=== PATIENT | female | born 1960 | race Caucasian/White ===

== ENCOUNTER 2017-01-08 17:29 | Emergency (ER) | payer BC ==
[2017-01-08 17:59] VITALS: BP 147/87
--- NOTE | 2017-01-08 18:39 | UC ---
Respiratory Complaint HPI - HPI Summary HPI Summary: 56 year old female presents with complains of chest cough and nasal congestion. - History of Current Complaint Chief Complaint: UCRespiratory Stated Complaint: COUGH/CHEST CONGESTION Time Seen by Provider: 01/08/17 18:35 - Allergies/Home Medications Allergies/Adverse Reactions: Allergies Allergy/AdvReac Type Severity Reaction Status Date / Time No Known Allergies Allergy Verified 01/08/17 17:59 Home Medications: Home Medications Metoprolol Tartrate TAB* [Lopressor TAB*] 100 mg PO DAILY 01/08/17 [History Confirmed 01/08/17] Sertraline* [Zoloft*] 100 mg PO DAILY 01/08/17 [History Confirmed 01/08/17] PMH/Surg Hx/FS Hx/Imm Hx - Surgical History Surgical History: None - Social History Alcohol Use: Occasionally Substance Use Type: None Smoking Status (MU): Heavy Every Day Tobacco Smoker Type: Cigarettes Amount Used/How Often: 1 pack daily Review of Systems Constitutional: Negative Skin: Negative Eyes: Negative ENT: Nasal Discharge, Sinus Congestion Respiratory: Cough Cardiovascular: Negative Gastrointestinal: Negative Genitourinary: Negative Motor: Negative Neurovascular: Negative Musculoskeletal: Negative Neurological: Negative Psychological: Negative All Other Systems Reviewed And Are Negative: Yes Physical Exam Triage Information Reviewed: Yes Vital Signs: Initial Vital Signs Temp 37.1 C 01/08/17 17:56 Pulse 75 01/08/17 17:56 Resp 16 01/08/17 17:56 BP 147/87 01/08/17 17:56 Pulse Ox 100 01/08/17 17:56 Eye Exam: Normal ENT: Positive: Pharyngeal erythema, Nasal congestion Dental Exam: Normal Neck exam: Normal Neck: Positive: 1 Respiratory Exam: Normal Respiratory: Positive: Rhonchi - right base, Wheezing Cardiovascular Exam: Normal Abdominal Exam: Normal Musculoskeletal Exam: Normal Neurological Exam: Normal Psychological Exam: Normal Skin Exam: Normal UC Diagnostic Evaluation - Laboratory O2 Sat by Pulse Oximetry: 100 Respiratory Course/Dx - Differential Dx/Diagnosis Provider Diagnoses: cough. sinusitis Discharge - Discharge Plan Condition: Stable Disposition: HOME Prescriptions: Azithromycin TAB* [Zithromax TAB (Z-SRINIVASA) 250 mg #6 tabs] 2 tab PO .TODAY, THEN 1 DAILY #1 srinivasa guaiFENesin/CODIEN 100MG-10MG* [Robitussin AC 100Mg-10Mg*] 5 ml PO Q4H PRN #120 udc MDD 20 ml PRN Reason: Cough Patient Education Materials: Sinusitis (ED), Acute Cough (ED) Referrals: Ghazala Jesus NP [Primary Care Provider] - If Needed
== END 2017-01-08 18:45 | disposition home or self-care (01) ==
LOC: UCCORT 17:29
DX: R05 Cough (principal); J32.9 Chronic sinusitis, unspecified; F17.210 Nicotine dependence, cigarettes, uncomplicated
CPT/HCPCS: 99212; G0463

== ENCOUNTER 2018-03-28 16:36 | Emergency (ER) | payer BC ==
[2018-03-28 17:04] VITALS: BP 124/75
--- NOTE | 2018-03-28 17:06 | UC ---
Back Pain HPI - HPI Summary HPI Summary: 57 yo female presents with mid back pain that started yesterday. She tells me that on 03/11 she saw her PCP due to right rib pain that started suddenly. An XR was performed and was negative per pt. She was given NSAIDs and dx'd with pleurodynia. Her rib pain resolved. Since that time she has been having a dry cough. Yesterday developed mid back pain that is painful when she takes a deep breath or stands up straight. Feels better when she is hunched over. She has been taking naproxen for pain with mild relief. Denies fever, chills, SOB, chest pain, abdominal pain, n/v - History of Current Complaint Chief Complaint: UCBackPain Stated Complaint: SEVERE BACK PAIN Hx Obtained From: Patient Onset/Duration: Sudden Onset Severity Initially: Severe Severity Currently: Severe Pain Intensity: 9 Pain Scale Used: 0-10 Numeric - Allergies/Home Medications Allergies/Adverse Reactions: Allergies Allergy/AdvReac Type Severity Reaction Status Date / Time No Known Allergies Allergy Verified 01/08/17 17:59 Home Medications: Home Medications Hydroxychloroquine TAB* [Plaquenil TAB*] 200 mg PO BID 03/28/18 [History Confirmed 03/28/18] Naproxen [Naproxen 500 mg tab] 500 mg PO BID 03/28/18 [History Confirmed ] Omeprazole CAP* [Prilosec CAP* 20 MG] 40 mg PO DAILY 03/28/18 [History Confirmed 03/28/18] PMH/Surg Hx/FS Hx/Imm Hx Cardiovascular History: Hypertension GI/ History: Gastroesophageal Reflux Psychological History: Anxiety, Depression - Surgical History Surgical History: None - Family History Known Family History: Positive: None - Social History Occupation: Employed Full-time Lives: With Family Alcohol Use: Occasionally Substance Use Type: None Smoking Status (MU): Heavy Every Day Tobacco Smoker Type: Cigarettes Amount Used/How Often: 1/2-3/4 ppd Review of Systems Constitutional: Negative Skin: Negative Eyes: Negative ENT: Negative Respiratory: Cough Cardiovascular: Negative Gastrointestinal: Negative Neurovascular: Negative Musculoskeletal: Other: - Mid back pain Neurological: Negative Psychological: Negative All Other Systems Reviewed And Are Negative: Yes Physical Exam - Summary Physical Exam Summary: GENERAL: NAD. WDWN. No pain distress. SKIN: No rashes, sores, lesions, or open wounds. HEENT: Head: AT/NC Eyes: Conjunctiva clear without inflammation or discharge. Ears: Hearing grossly normal. TMs intact, no bulging, erythema, or edema. Nose: Nasal mucosa pink and moist. NTTP maxillary and frontal sinus. Throat: Posterior oropharynx without exudates, erythema, or tonsillar enlargement. Uvula midline. NECK: Supple. Nontender. No lymphadenopathy. CHEST: Mild wheezing throughout. No r/r. No accessory muscle use. Breathing comfortably and in no distress. CV: RRR. Without m/r/g. Pulses intact. Cap refill <2seconds MSK: Moderate TTP ~T4-T6 vertebrae with surrounding mild TTP. Standing straight increased her pain. She is able to bend/flex with little pain. NEURO: Alert. PSYCH: Age appropriate behavior. Triage Information Reviewed: Yes Vital Signs: Initial Vital Signs Temp 97.9 F 03/28/18 16:56 Pulse 91 03/28/18 16:56 Resp 18 03/28/18 16:56 BP 124/75 03/28/18 16:56 Pulse Ox 100 03/28/18 16:56 Vital Signs Reviewed: Yes Back Pain Course/Dx - Course Course Of Treatment: CXR: IMPRESSION: #. Stigmata of obstructive lung disease. No acute pulmonary or cardiac process evident. #. New compared with January 05, 2015 lateral chest radiograph mild anterior column T6. compression fracture without definitive acute features. She had improvement of her cough/breathing s /p levalbuterol treatment. Lungs with less wheezing. Given her sudden pain in the area of T6, suspect this fracture may be acute. She says that she has not fallen or had an injury to the area, but was dx'd with osteopenia a few years ago via DEXA scan. Will rx for Tramadol for pain control and have her f/u with her PCP for recheck next week. iSTOP: Reference #: [id number] - Differential Dx/Diagnosis Provider Diagnoses: T6 compression fracture. COPD exacerbation Discharge - Sign-Out/Discharge Documenting (check all that apply): Patient Departure All imaging exams completed and their final reports reviewed: Yes - Discharge Plan Condition: Stable Disposition: HOME Prescriptions: traMADol TAB* [Ultram*] 50 mg PO Q12H PRN #8 tab MDD 2 PRN Reason: Pain Patient Education Materials: Vertebral Compression Fracture (ED) Referrals: Dill,Florecita L, MD [Primary Care Provider] - Additional Instructions: If you develop a fever, shortness of breath, chest pain, new or worsening symptoms - please call your PCP or go to the ED. 1) Please schedule a follow up appointment with your Primary Doctor as soon as possible for a recheck - Billing Disposition and Condition Condition: STABLE Disposition: Home
[2018-03-28] MEDS ORDERED: Levalbuterol 0.63MG/3ML NEB* UNIT OF USE INH ONE (17:14)
--- NOTE | 2018-03-28 17:57 | RAD ---
INDICATION: Mid back pain starting yesterday. Coughing. COPD. History of tobacco use. COMPARISON: March 11, 2018. PA and lateral chest radiograph of January 05, 2015. TECHNIQUE: Dual energy PA and routine lateral views of the chest were obtained. REPORT: Elevated lung volumes and mild prominence of interstitial markings. No focal pulmonary lesion, compelling alveolar consolidation, pleural effusion, pneumothorax. The heart, pulmonary vasculature, and mediastinal contours are unremarkable. Mild anterior compression deformity of the approximate T6 vertebral body is new compared with the January 05, 2015 chest radiograph. No discrete cortical disruption or trabecular impaction evident to confirm that this represents an acute or subacute fracture. IMPRESSION: #. Stigmata of obstructive lung disease. No acute pulmonary or cardiac process evident. #. New compared with January 05, 2015 lateral chest radiograph mild anterior column T6 compression fracture without definitive acute features.
== END 2018-03-28 18:30 | disposition home or self-care (01) ==
LOC: UCCORT 16:36
DX: M48.56XA Collapsed vertebra, not elsewhere classified, lumbar region, initial encounter for fracture (principal); J44.1 Chronic obstructive pulmonary disease with (acute) exacerbation; I10 Essential (primary) hypertension; K21.9 Gastro-esophageal reflux disease without esophagitis; F17.210 Nicotine dependence, cigarettes, uncomplicated
CPT/HCPCS: 71046; 81003; 87077; 87086; 99212; G0463

== ENCOUNTER 2018-06-20 10:18 | Emergency (ER) | payer BC ==
--- OUTSIDE RECORDS SUMMARY | 2018-06-20 10:27 | XMS REPORT | Continuity of Care Document ---
:1960 External Reference #:[id number] Author Name Paty Armstrong Care Team Providers Name Role Phone Florecita Porter M.D. Primary Care Physician Unavailable Payers Type Date Identification Numbers Payment Provider Subscriber Policy Number: [id number] [employer]low PayID: [id number] [address] [address] [place] [address] Advance Directives Description No Information Available Problems Description No Information Family History Date Family Member(s) Problem(s) Comments Father due to Prostate Cancer () - at age 78 Mother due to Lung Cancer () - at age 75 Siblings 4 sister-spondolithesis brother-onset adult cystic fibrosis sister-hypertension Social History Type Date Description Comments Sex Unknown Marital Status Lives With Spouse Occupation [employer] ETOH Use Denies alcohol use Tobacco Use Start: Unknown Heavy tobacco smoker (more since age 16 than 10 cigarettes/day) Recreational Drug Use Denies Drug Use Smoking Status Reviewed: 06/16/18 Heavy tobacco smoker (more since age 16 than 10 cigarettes/day) Exercise Type/Frequency Exercises rarely Allergies, Adverse Reactions, Alerts Description No Known Drug Allergies Medications Medication Date Status Form Strength Qnty SIG Indications Ordering Provider Plaquenil Active Tablets 200mg 2 by mouth Unknown 000 daily ongoing Vitamin D3 Active Tablets [id number] one by Unknown Ultra Potency 000 mouth once weekly Amlodipine Active Tablets 10mg 1 by mouth Unknown Besylate 000 every day Metoprolol Active Tablets 100mg take 1 1/2 Unknown Tartrate 000 tablets once daily Omeprazole Active Capsules 40mg 1 by mouth Unknown 000 DR every day Sertraline Active Tablets 100mg 1 by mouth Unknown HCL 000 every day Calcitonin Active Solution 200Unit/Ac one spray Unknown ([place]) 000 t daily in alternate nostrils Naproxen Active Tablets 550mg 1 by mouth Unknown Sodium 000 twice a day after meals Tramadol HCL Active Tablets 50mg 1-2 tablets Unknown 000 by mouth every 6 hours as needed pain Fosamax Hx Tablets 70mg take one Unknown 000 - tablet by mouth every 018 week Gabapentin Hx Capsules 100mg 1 capsule Unknown 000 - three times daily. 018 Immunizations Description No Information Available Vital Signs Date Vital Result Comment 06/16/2018 9:52am Height 61 inches 5'1" Heart Rate 74 /min BP Systolic Sitting 120 mmHg BP Diastolic Sitting 98 mmHg Pain Level 5 05/07/2018 8:08am Height 61 inches 5'1" Weight 164.25 lb Heart Rate 80 /min BP Systolic Sitting 130 mmHg BP Diastolic Sitting 96 mmHg Respiratory Rate 20 /min BMI (Body Mass Index) 31.0 kg/m2 Results Description No Information Available Procedures Description No Information Available Encounters Type Date Location Provider Dx Diagnosis Office Visit 05/07/2018 [facility] O[facility] osteopor w 8:00a [facility] S[facility] verte[facility], [facility] Plan of Treatment Future Appointment(s):09/17/2018 8:30 am - Bailee Sanders MD [facility]06/16/2018 - Bailee Sanders [id number] Oth osteopor w ines [facility]um, 7thD
[2018-06-20 10:39] VITALS: BP 134/75
--- NOTE | 2018-06-20 11:50 | UC ---
Back Pain HPI - HPI Summary HPI Summary: mid back pain x 2 days hx of chronic back pain , s/p compression fracture T6 on chronic pain meds Ultram pain has been sever for the past 2 days after coughing no radiation of the pain - History of Current Complaint Chief Complaint: UCBackPain Stated Complaint: BACK PAIN Time Seen by Provider: 06/20/18 11:03 Hx Obtained From: Patient Onset/Duration: Sudden Onset, Lasting Days - 2, Still Present Timing: Constant Severity Initially: Severe Severity Currently: Severe Pain Intensity: 8 Back Pain: Is Discrete @ - mid back pain Character: Aching Aggravating Factor(s): Movement, Lifting, Bending, Walking, Cough Alleviating Factor(s): Nothing Associated Signs And Symptoms: Negative: Swelling, Redness, Bruising, Fever, Weakness, Numbness, Tingling, Bladder Incontinence - Allergies/Home Medications Allergies/Adverse Reactions: Allergies Allergy/AdvReac Type Severity Reaction Status Date / Time No Known Allergies Allergy Verified 06/20/18 10:32 Home Medications: Home Medications Amlodipine Besylate [Amlodipine 2.5 mg tab] 2.5 mg PO DAILY 06/20/18 [History Confirmed 06/20/18] Calcium Carbonate/Vitamin D3 [Calcium 500 + Vit D Caplet] 1 each PO DAILY [History Confirmed 06/20/18] Cholecalciferol TAB* [Vitamin D TAB*] 1,000 unit PO DAILY 06/20/18 [History Confirmed 06/20/18] Multivitamin [Multivitamins] 1 cap PO DAILY 06/20/18 [History Confirmed 06/20/18 ] PMH/Surg Hx/FS Hx/Imm Hx - Additional Past Medical History Additional PMH: chronic back pain Cardiovascular History: Hypertension Respiratory History: COPD - Surgical History Surgical History: Yes Surgery Procedure, Year, and Place: TUBAL LIGATION - Family History Known Family History: Positive: None - Social History Alcohol Use: Occasionally Substance Use Type: None Smoking Status (MU): Heavy Every Day Tobacco Smoker Type: Cigarettes Amount Used/How Often: 1/2-3/4 ppd Review of Systems All Other Systems Reviewed And Are Negative: Yes Constitutional: Positive: Negative Skin: Positive: Negative Eyes: Positive: Negative ENT: Positive: Negative Is Patient Immunocompromised?: No Physical Exam Triage Information Reviewed: Yes Appearance: Well-Appearing, Pain Distress Vital Signs: Initial Vital Signs Temp 98.6 F 12/21/18 10:35 Pulse 84 06/20/18 10:35 Resp 16 06/20/18 10:35 BP 134/75 06/20/18 10:35 Pulse Ox 99 06/20/18 10:35 Vital Signs Reviewed: Yes Eye Exam: Normal Eyes: Positive: Conjunctiva Clear ENT: Positive: Normal ENT inspection, Hearing grossly normal, Pharynx normal Neck: Positive: Supple, Nontender, No Lymphadenopathy Respiratory: Positive: Chest non-tender, Lungs clear, Normal breath sounds Cardiovascular: Positive: RRR, No Murmur, Pulses Normal Musculoskeletal: Positive: Other: - mid back : no swelling, + tenderness t4 to t8 limited ROM on flexion , Diagnostics - Laboratory Diagnostic Studies Completed/Ordered: xray Tspine : IMPRESSION: 1. SCOLIOSIS. 2. STABLE COMPRESSION DEFORMITY OF T6. Back Pain Course/Dx - Differential Dx/Diagnosis Provider Diagnosis: Mid back pain Discharge - Sign-Out/Discharge Documenting (check all that apply): Patient Departure All imaging exams completed and their final reports reviewed: Yes - Discharge Plan Condition: Stable Disposition: HOME Prescriptions: Cyclobenzaprine TAB* [Flexeril 10 MG TAB*] 10 mg PO BID PRN #20 tab PRN Reason: Pain Patient Education Materials: Chronic Back Pain (DC) Referrals: Florecita Porter MD [Primary Care Provider] - 5 Days Additional Instructions: cont. with rest, ice, Ultram as needed for pain. use Flexeril 2 x per day as needed follow up with your pcp in 5 days - Billing Disposition and Condition Condition: STABLE Disposition: Home
== END 2018-06-20 11:47 | disposition home or self-care (01) ==
LOC: UCCORT 10:18
DX: M54.6 Pain in thoracic spine (principal); I10 Essential (primary) hypertension
CPT/HCPCS: 72070; 99212; G0463

== ENCOUNTER 2018-09-10 13:49 | Emergency (ER) | payer BC ==
[2018-09-10 14:09] VITALS: BP 157/96
[2018-09-10] MEDS ORDERED: Albuterol/Ipratropium NEB.SOL* Albuterol 2.5 MG/Ipratropium 0.5 MG 3 ML INH ONE (14:27)
--- NOTE | 2018-09-10 14:32 | UC ---
Respiratory Complaint HPI - HPI Summary HPI Summary: Patient has had cold symptoms over the past 2 weeks with her cough worsening over the past couple of days. She does use an albuterol inhaler at home which has not helped. She's had productive cough of green sputum with wheezing. She continues to smoke. She did not get a flu shot in fall. He is not registered a fever however she feels like she's had a fever. - History of Current Complaint Chief Complaint: UCRespiratory Stated Complaint: WHEEZING,CONGESTION,SOB Time Seen by Provider: 09/10/18 14:22 Hx Obtained From: Patient ?: No Onset/Duration: Gradual Onset Severity Initially: Moderate Severity Currently: Moderate Pain Intensity: 0 Character: Cough: Productive - Rectal cough of green sputum Aggravating Factors: Nothing Alleviating Factors: Bronchodilator - States her albuterol inhaler hasn't helped much at home. Associated Signs And Symptoms: Positive: Fever, URI, Nasal Congestion - Allergies/Home Medications Allergies/Adverse Reactions: Allergies Allergy/AdvReac Type Severity Reaction Status Date / Time No Known Allergies Allergy Verified 09/10/18 14:07 PMH/Surg Hx/FS Hx/Imm Hx Previously Healthy: Yes Respiratory History: COPD, Asthma - Surgical History Surgical History: Yes Surgery Procedure, Year, and Place: TUBAL LIGATION - Family History Known Family History: Positive: None - Social History Alcohol Use: Occasionally Substance Use Type: None Smoking Status (MU): Heavy Every Day Tobacco Smoker Type: Cigarettes Amount Used/How Often: 1/2-3/4 ppd Review of Systems All Other Systems Reviewed And Are Negative: Yes Constitutional: Positive: Fever, Chills - Patient has not registered a fever on a thermometer but she feels feverish. Skin: Positive: Negative Eyes: Positive: Negative ENT: Positive: Nasal Discharge, Sinus Congestion - Symptoms started as an upper respiratory illness however she states that has moved to her chest. Respiratory: Positive: Cough - Productive cough of green sputum occasionally short of breath especially when she's been coughing. Patient has been using an albuterol inhaler without improvement. Cardiovascular: Positive: Negative Gastrointestinal: Positive: Negative Genitourinary: Positive: Negative Motor: Positive: Negative Neurovascular: Positive: Negative Musculoskeletal: Positive: Negative Neurological: Positive: Negative Psychological: Positive: Negative Is Patient Immunocompromised?: No Physical Exam Triage Information Reviewed: Yes Appearance: Well-Appearing, No Pain Distress, Well-Nourished Vital Signs: Initial Vital Signs Temp 97.9 F 09/10/18 14:06 Pulse 105 09/10/18 14:06 Resp 21 09/10/18 14:06 BP 157/96 09/10/18 14:06 Pulse Ox 98 09/10/18 14:06 Vital Signs Reviewed: Yes Eye Exam: Normal ENT Exam: Normal Neck exam: Normal Respiratory: Positive: No respiratory distress, No accessory muscle use, Rhonchi , Wheezing - Scattered rhonchi and wheezing throughout all lung hannon. Air movement. No respiratory distress. Cardiovascular Exam: Normal Abdominal Exam: Normal Bowel Sounds: Positive: Present Musculoskeletal Exam: Normal Neurological Exam: Normal Psychological Exam: Normal Skin Exam: Normal Re-Evaluation - Re-Evaluation First Eval Change: Improved - The patient noted mild improvement following the DuoNeb treatment however she continues to still have scattered wheezing and rhonchi throughout however no distress. Respiratory Course/Dx - Course Course Of Treatment: She has been comfortable here. X-ray report showsREPORT: Mild alveolar consolidation at the RIGHT lung base. Elevated lung volumes. Patchy. upper lung zone rarefaction of interstitial markings. Negative for pleural effusion or. pneumothorax. The heart, pulmonary vasculature, and mediastinal contours are unremarkable. IMPRESSION: #. Probable mild RIGHT basilar inflammatory infiltrates superimposed on chronic. obstructive pulmonary disease. - Differential Dx/Diagnosis Differential Diagnosis/HQI/PQRI: Other - Community-acquired pneumonia Provider Diagnosis: Community acquired pneumonia Discharge - Sign-Out/Discharge Documenting (check all that apply): Patient Departure All imaging exams completed and their final reports reviewed: No Studies - Discharge Plan Condition: Fair Disposition: HOME Prescriptions: Albuterol HFA INHALER* [Ventolin HFA Inhaler*] 2 puff INH Q4H PRN 5 Days #1 mdi PRN Reason: Wheezing DOXYcycline CAP(*) [DOXYcycline 100MG CAP(*)] 100 mg PO BID 10 Days #20 cap Patient Education Materials: Community Acquired Pneumonia (DC) Forms: *Work Release Referrals: Florecita Porter MD [Primary Care Provider] - Additional Instructions: Increase fluids, do not take any multivitamins, your calcium tablet, or any dairy products or antacids 2 hours prior to taking the doxycycline and 2 hours after he takes the doxycycline. However it is important that you take doxycycline with food. Continue your albuterol inhaler 2 puffs every 4-6 hours as needed for wheezing. Definite follow-up with your primary care provider before the antibiotic is finished. If you develop any worsening symptoms, shortness of breath, difficulty breathing, chest pain your to go to the emergency room. - Billing Disposition and Condition Condition: FAIR Disposition: Home
== END 2018-09-10 15:03 | disposition home or self-care (01) ==
LOC: UCCORT 13:49
DX: J18.9 Pneumonia, unspecified organism (principal); J44.0 Chronic obstructive pulmonary disease with (acute) lower respiratory infection; F17.210 Nicotine dependence, cigarettes, uncomplicated
CPT/HCPCS: 71046; 99212; A9270-GY; G0463

== ENCOUNTER 2019-02-10 17:17 | Emergency (ER) | payer BC ==
[2019-02-10 17:47] VITALS: BP 136/88
--- NOTE | 2019-02-10 17:58 | UC ---
UC General HPI - HPI Summary HPI Summary: per triage, Intermittent left lora pain aggrevated by touching it and weight bearing. Pain is at it's worst when walking on it. It hurts at rest first thing in the mornings and late at night. Pain started after more than normal walking while on vacation two weeks ago. Patient has not tried anything to relieve pain. Patient is concerned about a fracture due to osteoporosis and history of atraumatic thoracic fracture. Patient's stated silvianotnet is currently having alupus flare. [ End ] PT DENIES CP, SOB AND COUGH. NO PRIOR HX DVT. HX LUPUS. - History of Current Complaint Chief Complaint: UCLowerExtremity Stated Complaint: LEFT LORA INJURY Time Seen by Provider: 02/10/19 17:36 Hx Obtained From: Patient Pain Intensity: 4 - Allergy/Home Medications Allergies/Adverse Reactions: Allergies Allergy/AdvReac Type Severity Reaction Status Date / Time No Known Allergies Allergy Verified 09/10/18 14:07 Home Medications: Home Medications Belimumab [Benlysta] 200 mg SUBCUT Q14D 02/10/19 [History Confirmed 02/10/19] PMH/Surg Hx/FS Hx/Imm Hx - Additional Past Medical History Additional PMH: Lupus Cardiovascular History: Hypertension GI/ History: Gastroesophageal Reflux Psychological History: Depression - Surgical History Surgical History: Yes Surgery Procedure, Year, and Place: Exploratory Laporoscopy;Tubal Ligation, 1991 , - Family History Known Family History: Positive: None - Social History Alcohol Use: None Substance Use Type: None Smoking Status (MU): Heavy Every Day Tobacco Smoker Type: Cigarettes Amount Used/How Often: ~1 PPD Length of Time of Smoking/Using Tobacco: Since Age 16 Review of Systems All Other Systems Reviewed And Are Negative: No Constitutional: Negative: Fever, Chills Skin: Negative: Rash Respiratory: Negative: Shortness Of Breath, Cough Cardiovascular: Negative: Palpitations, Chest Pain Musculoskeletal: Negative: Decreased ROM Neurological: Negative: Weakness, Paresthesia, Numbness Physical Exam Triage Information Reviewed: Yes Appearance: Well-Appearing Vital Signs: Initial Vital Signs Temp 98 F 02/10/19 17:36 Pulse 78 02/10/19 17:36 Resp 16 02/10/19 17:36 BP 136/88 02/10/19 17:36 Pulse Ox 99 02/10/19 17:36 Vital Signs Reviewed: Yes Respiratory: Positive: No respiratory distress Cardiovascular: Positive: RRR Musculoskeletal: Positive: Other: - LLE: MILD SWELLING FROM KNEE DOWN. SLIGHT MEDIAL CALF TENDERNESS BUT NO CORDS. ALSO TENDER OVER PROXIMAL-MEDIAL TIBIA. HIP. KNEE AND ANKLE/FOOT ARE NON TENDER. FOOT HAS GROSS S/V/M FUNCTION. Course/Dx - Course Course Of Treatment: [facility] CALLED-SADE CURIEL NP ADVISED OF PT WITH LUPUS AND HX LLE PAIN/SWELLING X 2 WEEKS. - Differential Dx - Multi-Symptom Differential Diagnoses: Other - NO CONCERN FOR INFECTION. POSSIBLE STRESS FX/ LORA SPLINT; HOWEVER, THE DIFFUSE SWELLING FROM JUST ABOVE THE KNEE DOWN THUS WILL NEED TO R/O DVT. PT AGREES TO ER TRANSFER. XRAY WILL BE DEFER TO THE ER. - Diagnoses Provider Diagnosis: Swelling of left lower extremity, Pain in left lower leg Discharge - Sign-Out/Discharge Documenting (check all that apply): Patient Departure All imaging exams completed and their final reports reviewed: No Studies - Discharge Plan Condition: Stable Disposition: TRANS HIGHER LVL OF CARE FAC Referrals: Florecita Porter MD [Primary Care Provider] - Additional Instructions: LEAVE HERE AND GO DIRECTLY TO THE [facility] DISCUSSED. - Billing Disposition and Condition Condition: STABLE Disposition: Trans Higher Lvl of Care Fac
== END 2019-02-10 18:15 | disposition short-term general hospital (02) ==
LOC: UCCORT 17:17
DX: M79.89 Other specified soft tissue disorders (principal); M79.662 Pain in left lower leg; I10 Essential (primary) hypertension; M32.9 Systemic lupus erythematosus, unspecified; F17.210 Nicotine dependence, cigarettes, uncomplicated
CPT/HCPCS: 99212; G0463

== ENCOUNTER 2019-04-22 17:16 | Emergency (ER) | payer BC ==
--- OUTSIDE RECORDS SUMMARY | 2019-04-22 17:24 | XMS REPORT | Continuity of Care Document ---
:1960 External Reference #:[id number] Author Name Emiliano Pittman MD (transmitted by agent of provider Nicolas Valdez) Address [address] [place] [id number] Care Team Providers Name Role Phone Florecita Porter M.D. - Internal Medicine Care Team Information Entry Level Financial Analyst Problems Description No Information Available Social History Type Date Description Comments Sex Unknown ETOH Use Denies alcohol use Recreational Drug Use Denies Drug Use Tobacco Use Start: Unknown Light tobacco smoker (10 or fewer cigarettes/day) Smoking Status Reviewed: 04/03/19 Light tobacco smoker (10 or fewer cigarettes/day) Exercise Type/Frequency Exercises rarely Allergies, Adverse Reactions, Alerts Description No Known Drug Allergies Medications Active Medications SIG Qnty Indications Ordering Provider Date Knee Walker For Left 1units Emiliano Pittman, 03/10/2019 Tibia Fracture MD Lorenz For Left M84.362S Emiliano Pittman, 03/04/2019 Tibia Fracture Plaquenil 2 by mouth daily Unknown 200mg ongoing Tablets Vitamin D2 1 tab by mouth 12tabs Unknown 2000Unit twice daily Tablets Amlodipine Besylate 1 by mouth every Unknown day 10mg Tablets Metoprolol Tartrate take 1 1/2 tablets Unknown once daily 100mg Tablets Omeprazole 1 by mouth every Unknown 40mg day Capsules DR Sertraline HCL 1 by mouth every Unknown 100mg day Tablets Calcitonin ([place]) one spray daily in Unknown alternate nostrils 200Unit/Act Solution Naproxen Sodium 1 by mouth twice a Unknown 550mg day after meals Tablets Benlysta 1 injection weekly Keanu Ortiz, 200mg/ml as directed MD Duong Prefill Syringe Immunizations Description No Information Available Vital Signs Date Vital Result Comment 04/03/2019 9:16am Height 61 inches 5'1" Weight 164.00 lb Heart Rate 88 /min BP Systolic Sitting 126 mmHg BP Diastolic Sitting 74 mmHg Respiratory Rate 16 /min Pain Level 7 O2 % BldC Oximetry 97 % BMI (Body Mass Index) 31.0 kg/m2 03/04/2019 9:19am Height 61 inches 5'1" Heart Rate 84 /min BP Systolic Sitting 110 mmHg BP Diastolic Sitting 82 mmHg Respiratory Rate 24 /min no resp diffiulties Pain Level 9 O2 % BldC Oximetry 98 % Results Description No Information Available Procedures Description No Information Available Medical Devices Description No Information Available Encounters Type Date Location Provider Dx Diagnosis Office Visit 03/04/2019 [facility] Emiliano Pittman M84.362S Stress fracture, 9:00a at [place] left tibia, sequela M80.00xD Age-rel osteopor w crnt path fx, unsp site, 7thD Office Visit 02/16/2019 10:45a [facility] Emiliano Pittman M79.662 Pain in left at [place] lower leg Assessments Date Code Description Provider 04/03/2019 M84.362S Stress fracture, left tibia, linnea Pittman MD 03/04/2019 M84.362S Stress fracture, left tibia, linnea Pittman MD 03/04/2019 M80.00xD Age-related osteoporosis with current Emiliano Pittman MD pathological fracture, unspecified site, subsequent encounter for fracture with routine healing 02/16/2019 M79.662 Pain in left lower leg Emiliano Pittman MD Plan of Treatment 04/03/2019 - Emiliano Pittman, MDM84.362S Stress fracture, left tibia, sequelaFollow up:Follow up: I called Dr. Porter office and she has upcoming appt Functional Status Description No Information Available Mental Status Description No Information Available Referrals Description No Information Available
--- NOTE | 2019-04-22 18:00 | UC ---
Back Pain HPI - HPI Summary HPI Summary: 58 y/o female presents to the urgent care c/o RT upper back pain and under Rt scapula which returned for the past 2 weeks ago. no injury but patient has cough for 2 weeks. She also has Hx of osteoporosis in back and COPD. She reports a thoracic vertebral compression fracture in [address] Sharma has manage her symptoms. However she wants another opinion. Also reports Hx of tibia fracture recently due to her osteoporosis. She takes Benlysta PO yearly for her Osteoporosis. However she thinks it has worsen since lately she has has this fractures. Pt also c/o hesitancy, and frequency on urination. Pt denies lower back pain, flank pain, numbness or tingling sensation over the 4 extremities, SOB, chest pain, dizziness, abdominal pain, N/ V/D, KISER, vaginal discharge or Hx of STD's. Pt has been taken Aleve PO to alleviate symptoms, but nothing today. - History of Current Complaint Chief Complaint: UCBackPain Stated Complaint: BACK PAIN Time Seen by Provider: 04/22/19 17:59 Hx Obtained From: Patient ?: No Onset/Duration: Gradual Onset, Lasting Weeks - 2 weeks, Still Present, Worse Since - 2 days Timing: Constant Severity Initially: Moderate Severity Currently: Moderate Pain Intensity: 6 Pain Scale Used: 0-10 Numeric Back Pain: Is Discrete @ - mid upper back and Rt side scapula Character: Sharp Aggravating Factor(s): Movement, Lifting Alleviating Factor(s): Rest, OTC Meds Associated Signs And Symptoms: Positive: Negative. Negative: Swelling, Redness , Weakness, Numbness, Tingling, Abdominal Pain, Flank Pain, Bladder Incontinence , Bowel Incontinence, Weight Loss, Pain with Weight Bearing Related History: Similar Episode Dx As - Compression fracture at T6 and osteoporosis - Risk Factors AAA Risk Factors: Negative TAD Risk Factors: Negative Cauda Equina Risk Factors: Negative Epidural Abscess Risk Factors: Negative - Allergies/Home Medications Allergies/Adverse Reactions: Allergies Allergy/AdvReac Type Severity Reaction Status Date / Time No Known Allergies Allergy Verified 04/22/19 17:58 Home Medications: Home Medications Cyanocobalamin (Vitamin B-12) [Vitamin B-12] 1,000 mcg PO SEE INSTRUCTIONS 04/22 [History Confirmed 04/22/19] Magnesium Oxide [Magnesium] 1 tab PO DAILY 04/22/19 [History Confirmed 04/22/19] PMH/Surg Hx/FS Hx/Imm Hx Previously Healthy: Yes Other Endocrine History: Osteoporosis, Cardiovascular History: Hypertension GI/ History: Gastroesophageal Reflux Other Neurological History: compression fracture at T6 - Surgical History Surgical History: Yes Surgery Procedure, Year, and Place: Exploratory Laporoscopy;. Tubal Ligation, 1991, [place] - Family History Known Family History: Positive: Cardiac Disease, Hypertension - Social History Occupation: Employed Full-time Lives: With Family Alcohol Use: Rare Substance Use Type: None Smoking Status (MU): Heavy Every Day Tobacco Smoker Type: Cigarettes Amount Used/How Often: 1/2 PPD Length of Time of Smoking/Using Tobacco: Since Age 16 Review of Systems All Other Systems Reviewed And Are Negative: Yes Constitutional: Positive: Negative Skin: Positive: Negative Eyes: Positive: Negative ENT: Positive: Negative Respiratory: Positive: Negative Cardiovascular: Positive: Negative Gastrointestinal: Positive: Negative Genitourinary: Positive: Frequency, Urgency Motor: Positive: Negative Neurovascular: Positive: Negative Musculoskeletal: Positive: Decreased ROM - upper back, Other: - RT side mid upper back pain and RT scapula pain Neurological: Positive: Negative Psychological: Positive: Negative Is Patient Immunocompromised?: No Physical Exam - Summary Physical Exam Summary: Vital Signs Reviewed: Yes Appearance: Well-Appearing, Well-Nourished, female sitting in the examining table w/o any apparent distress. Eyes: Positive: Conjunctiva Clear - PERRLA, EOMI. ENT: Positive: Normal ENT inspection, Hearing grossly normal, Pharynx normal, TMs normal, Uvula midline Neck: Positive: Supple, Nontender, No Lymphadenopathy Respiratory: Positive: Chest non-tender, Lungs clear, Normal breath sounds, No respiratory distress Cardiovascular: Positive: RRR, No Murmur, Pulses Normal, Brisk Capillary Refill Abdomen Description: Positive: Nontender, No Organomegaly, Soft. Negative: CVA Tenderness (R), CVA Tenderness (L) Bowel Sounds: Positive: Present Musculoskeletal: Positive: Strength Intact, BACK: Patient walked into the urgent care room with symmetric ambulation, No signs of limping, antalgic, able to bear weight. No signs of trauma, No masses palpated. Point tenderness at the level of T4-T8 and RT side paraspinal muscle tenderness at the same level and also below the lower side of the Rt scapula w/o any swelling, ecchymosis or bruise. No CVAT, no flank ecchymosis . No sacroiliac notch tenderness, No saddle anesthesia.ROM: limited due to pain, Straight Leg Raise: negative. Patellar reflexes: brisk, symmetric Muscle strength lower extremities. Dorsiflexion/ plantar flexion of ankles. Heel/ toe walk. Lower extremities: Femoral, popliteal, posterior tibial, and dorsalis pedis pulses WNL. Pt refuse rectal exam. RT shoulder w/ FROM. Neurological: Positive: Alert, Muscle Tone Normal Psychological Exam: Normal Skin Exam: Normal Triage Information Reviewed: Yes Vital Signs: Initial Vital Signs Temp 98.4 F 04/22/19 17:39 Pulse 80 04/22/19 17:39 Resp 20 04/22/19 17:39 BP 155/96 04/22/19 17:39 Pulse Ox 97 04/22/19 17:39 Back Pain Course/Dx - Course Course Of Treatment: 58 y/o female presents to the urgent care c/o RT upper back pain and under Rt scapula which returned for the past 2 weeks ago. no injury but patient has cough for 2 weeks. She also has Hx of osteoporosis in back and COPD. She reports a thoracic vertebral compression fracture in [address] Sharma has manage her symptoms. However she wants another opinion. Also reports Hx of tibia fracture recently due to her osteoporosis. She takes Benlysta PO yearly for her Osteoporosis. However she thinks it has worsen since lately she has has this fractures. Pt also c/o hesitancy, and frequency on urination. Pt denies lower back pain, flank pain, numbness or tingling sensation over the 4 extremities, SOB, chest pain, dizziness, abdominal pain, N/ V/D, KISER, vaginal discharge or Hx of STD's. Pt has been taken Aleve PO to alleviate symptoms, but nothing today. Hx obtained. PT w/ Point tenderness at the level of T4-T8 and RT side paraspinal muscle tenderness at the same level and also below the lower side of the Rt scapula w/o any swelling, ecchymosis or bruise. No CVAT, no flank ecchymosis on examination. UA: trace ketones and bilirubin. Thoracic spine and RT scapula X-ray ordered, Impression: Severe compression fracture of T6 vertebral body unchanged from the one done on 2018. Pt Rx Medrol dose srinivasa, [place] PO for night time, flexeril PO as directed below.. Patient was higly recommended to f/u w/ Dr Sharma or [place] management specialist from [facility] in 2-3 days for further management on her symptoms. Pt's BP is elevated today advised to decrease salt in diet, monitor BP and f/u with PCP for further management in her HTN and osteoporosis. Patient understands and agrees. Patient is able to ambulate freely w/o aid or limp. Plan of care was discussed with the patient and patient understands and agrees. All questions were answered at patient satisfaction. Pt left clinic hemodynamically stable and ambulating. - Differential Dx/Diagnosis Differential Diagnosis/HQI/PQRI: Arthritis, Compressive Cord Syndrome, Fracture , Herniated Disc, Osteoporosis, Strain, Sprain Provider Diagnosis: Fracture, thoracic vertebra, compression, Muscle spasm, Uncontrolled hypertension Discharge ED - Sign-Out/Discharge Documenting (check all that apply): Patient Departure - D/C home All imaging exams completed and their final reports reviewed: No - Discharge Plan Condition: Stable Disposition: HOME Prescriptions: Cyclobenzaprine TAB* [Flexeril 10 MG TAB*] 10 mg PO TID PRN #21 tab PRN Reason: Spasms - Muscle HYDROcodone/ACETAMIN 5-325 MG* [[place] 5-325 TAB*] 1 tab PO Q8H PRN #9 tab MDD 1g /4hrs-4g/day PRN Reason: Pain - Severe methylPREDNISolone [Medrol Dosepak 4 MG*] 0 mg PO .SEE SRINIVASA INSTRUCTION #1 srinivasa Patient Education Materials: Vertebral Compression Fracture (ED), Muscle Spasm (ED) Referrals: Florecita Porter MD [Primary Care Provider] - 3 Days Petty Renee Ae, RN [Registered Nurse] - 2 Days Additional Instructions: 1- Please take Naproxen PO 250mg PO BID as directed after meals for pain. Medrol dose srinivasa as directed to alleviate symptoms 2- Take [place] PO at night time to alleviate pain. 3- Take Flexeril PO as directed for muscle spasm. Please do not drive while taking the medication. 4- Avoid strenuous exercise or heavy lifting. 5- Please call Spinal Nurse Navigator: Mohini Renee: [phone] or [facility]opedic at [place] for further management of your Compression fracture 6-Your BP is elevated today. Please take your BP medications and decrease salt in your diet, monitor BP and if it continues to be elevated please f/u with your PCP for further management. If you develop chest pain, dizziness, visual disturbances, SOB, or severe KISER please go immediately to the ER for further management - Billing Disposition and Condition Condition: STABLE Disposition: Home
[2019-04-22 20:04] VITALS: BP 148/95
--- NOTE | 2019-04-23 11:10 | UC ---
- Progress Note Progress Note: Final radiologist reading of April 22, 2019 x-rays come back for the right scapula as no acute process and of the thoracic spine there is a severe compression fracture of T6 vertebral body unchanged. Provider interpretation is not on the chart however the provider did diagnose the patient with a compression fracture and recommended follow-up with orthopedics so therefore there is no discrepancy. Course/Dx - Diagnoses Provider Diagnoses: Fracture, thoracic vertebra, compression, Muscle spasm Discharge ED - Sign-Out/Discharge Documenting (check all that apply): Patient Departure All imaging exams completed and their final reports reviewed: Yes - Discharge Plan Condition: Stable Disposition: HOME Prescriptions: Cyclobenzaprine TAB* [Flexeril 10 MG TAB*] 10 mg PO TID PRN #21 tab PRN Reason: Spasms - Muscle HYDROcodone/ACETAMIN 5-325 MG* [[place] 5-325 TAB*] 1 tab PO Q8H PRN #9 tab MDD 1g /4hrs-4g/day PRN Reason: Pain - Severe methylPREDNISolone [Medrol Dosepak 4 MG*] 0 mg PO .SEE SRINIVASA INSTRUCTION #1 srinivasa Patient Education Materials: Vertebral Compression Fracture (ED), Muscle Spasm (ED) Referrals: Florecita Porter MD [Primary Care Provider] - 3 Days Petty Renee Ae, RN [Registered Nurse] - 2 Days Additional Instructions: 1- Please take Naproxen PO 250mg PO BID as directed after meals for pain. Medrol dose srinivasa as directed to alleviate symptoms 2- Take [place] PO at night time to alleviate pain. 3- Take Flexeril PO as directed for muscle spasm. Please do not drive while taking the medication. 4- Avoid strenuous exercise or heavy lifting. 5- Please call Spinal Nurse Navigator: Mohini Renee: [phone] or [facility] at [place] for further management of your Compression fracture 6-Your BP is elevated today. Please take your BP medications and decrease salt in your diet, monitor BP and if it continues to be elevated please f/u with your PCP for further management. If you develop chest pain, dizziness, visual disturbances, SOB, or severe KISER please go immediately to the ER for further management - Billing Disposition and Condition Condition: STABLE Disposition: Home
== END 2019-04-22 20:04 | disposition home or self-care (01) ==
LOC: UCCORT 17:16
DX: S22.009A Unspecified fracture of unspecified thoracic vertebra, initial encounter for closed fracture (principal); G95.20 Unspecified cord compression; M62.830 Muscle spasm of back; M81.0 Age-related osteoporosis without current pathological fracture; J44.9 Chronic obstructive pulmonary disease, unspecified; R35.0 Frequency of micturition; F17.210 Nicotine dependence, cigarettes, uncomplicated; X58.XXXA Exposure to other specified factors, initial encounter; Y92.9 Unspecified place or not applicable
CPT/HCPCS: 72070; 81003; 99212; G0463

== ENCOUNTER 2019-09-10 16:36 | Emergency (ER) | payer BC ==
[2019-09-10 18:59] VITALS: BP 163/90
[2019-09-10] MEDS ORDERED: Albuterol HFA INHALER* 8 gm MDI INH ONE (19:13)
--- NOTE | 2019-09-10 19:20 | UC ---
Respiratory Complaint HPI - HPI Summary HPI Summary: 59 yo female with cough x 2 weeks - History of Current Complaint Chief Complaint: UCRespiratory Stated Complaint: CHEST CONGESTION, COUGH Time Seen by Provider: 09/10/19 19:04 Hx Obtained From: Patient Onset/Duration: Gradual Onset Timing: Constant Severity Initially: Mild Severity Currently: Moderate Pain Intensity: 0 Pain Scale Used: 0-10 Numeric Character: Cough: Nonproductive Alleviating Factors: Nothing Associated Signs And Symptoms: Positive: Wheezing - Allergies/Home Medications Allergies/Adverse Reactions: Allergies Allergy/AdvReac Type Severity Reaction Status Date / Time No Known Allergies Allergy Verified 09/10/19 18:58 Home Medications: Home Medications Metoprolol Tartrate TAB* [Lopressor TAB*] 100 mg PO DAILY 01/08/17 [History Confirmed 09/10/19] Sertraline* [Zoloft*] 100 mg PO BEDTIME 01/08/17 [History Confirmed 09/10/19] Hydroxychloroquine TAB* [Plaquenil TAB*] 200 mg PO BID 03/28/18 [History Confirmed 09/10/19] Omeprazole CAP (NF) [Prilosec CAP* 20 MG] 40 mg PO DAILY 03/28/18 [History Confirmed 09/10/19] Amlodipine Besylate [Amlodipine 2.5 mg tab] 2.5 mg PO DAILY 06/20/18 [History Confirmed 09/10/19] Calcium Carbonate/Vitamin D3 [Calcium 500-Vit D3 125 Caplet] 1 each PO DAILY [History Confirmed 09/10/19] Cholecalciferol TAB* [Vitamin D TAB*] 1,000 unit PO BID 06/20/18 [History Confirmed 09/10/19] Cyanocobalamin (Vitamin B-12) [Vitamin B-12] 1,000 mcg PO SEE INSTRUCTIONS 04/22 [History Confirmed 09/10/19] Magnesium Oxide [Magnesium] 1 tab PO DAILY 04/22/19 [History Confirmed 09/10/19] Amoxicillin PO (*) [Amoxicillin 875 MG (*)] 875 mg PO BID #14 tab 09/10/19 [Rx] predniSONE 20 mg TAB [Deltasone 20 MG TAB*] 40 mg PO DAILY #10 tab 09/10/19 [Rx] PMH/Surg Hx/FS Hx/Imm Hx Previously Healthy: No - LUPUS Cardiovascular History: Hypertension Respiratory History: Bronchitis, Pneumonia - Surgical History Surgical History: Yes Surgery Procedure, Year, and Place: Exploratory Laporoscopy;. Tubal Ligation, 1991, [place] - Family History Known Family History: Positive: Hypertension - Social History Alcohol Use: Rare Substance Use Type: None Smoking Status (MU): Heavy Every Day Tobacco Smoker Type: Cigarettes Amount Used/How Often: 1/2 PPD Length of Time of Smoking/Using Tobacco: Since Age 16 Review of Systems All Other Systems Reviewed And Are Negative: Yes Constitutional: Positive: Fatigue Skin: Positive: Negative Eyes: Positive: Negative ENT: Positive: Negative Respiratory: Positive: Cough, Other - wheezing Cardiovascular: Positive: Negative Gastrointestinal: Positive: Negative Genitourinary: Positive: Negative Motor: Positive: Negative Neurovascular: Positive: Negative Musculoskeletal: Positive: Negative Neurological/Mental Status: Positive: Negative Psychological: Positive: Negative Physical Exam Triage Information Reviewed: Yes Appearance: Well-Appearing, No Pain Distress, Well-Nourished Vital Signs: Initial Vital Signs Temp 97.9 F 09/10/19 18:55 Pulse 72 09/10/19 18:55 Resp 20 09/10/19 18:55 BP 163/90 09/10/19 18:55 Pulse Ox 97 09/10/19 18:55 Vital Signs Reviewed: Yes Eyes: Positive: Conjunctiva Clear ENT: Positive: Hearing grossly normal, Nasal congestion, Nasal drainage, Uvula midline. Negative: Tonsillar swelling, Tonsillar exudate, Trismus, Muffled voice, Sinus tenderness Dental Exam: Normal Neck: Positive: Supple, Nontender, No Lymphadenopathy Respiratory: Positive: No respiratory distress, No accessory muscle use, Wheezing Cardiovascular: Positive: RRR, No Murmur Musculoskeletal: Positive: ROM Intact, No Edema Neurological: Positive: Alert Psychological Exam: Normal Skin Exam: Normal Respiratory Course/Dx - Differential Dx/Diagnosis Provider Diagnosis: Acute bronchitis with bronchospasm Discharge ED - Sign-Out/Discharge Documenting (check all that apply): Patient Departure All imaging exams completed and their final reports reviewed: No Studies - Discharge Plan Condition: Stable Disposition: HOME Prescriptions: Amoxicillin PO (*) [Amoxicillin 875 MG (*)] 875 mg PO BID #14 tab predniSONE 20 mg TAB [Deltasone 20 MG TAB*] 40 mg PO DAILY #10 tab Patient Education Materials: Acute Bronchitis (ED), How to Use a Metered-Dose Inhaler and a Spacer (ED) Referrals: Florecita Porter MD [Primary Care Provider] - 4 Days (if not better) Additional Instructions: recheck for fever or worsening symptoms recheck next week if not better - Billing Disposition and Condition Condition: STABLE Disposition: Home
== END 2019-09-10 19:30 | disposition home or self-care (01) ==
LOC: UCCORT 16:36
DX: J20.9 Acute bronchitis, unspecified (principal); I10 Essential (primary) hypertension; F17.210 Nicotine dependence, cigarettes, uncomplicated; Z79.899 Other long term (current) drug therapy
CPT/HCPCS: 99213; A9270-GY; G0463